=== PATIENT | female | born 1990 | race Caucasian/White ===

== ENCOUNTER 2022-02-16 07:10 | Day surgery (SDC) | payer BC, SELFPAY ==
[2022-02-16 07:42] VITALS: BMI 30.9
== END 2022-02-16 11:10 | disposition home or self-care (01) ==
LOC: CSHLD/OP 07:10
PROVIDERS: ATTEND Obstetrics & Gynecology
DX: O47.1 False labor at or after 37 completed weeks of gestation (principal); O48.0 Post-term pregnancy; O46.93 Antepartum hemorrhage, unspecified, third trimester; O99.891 Other specified diseases and conditions complicating pregnancy; M54.9 Dorsalgia, unspecified; Z3A.40 40 weeks gestation of pregnancy

== ENCOUNTER 2022-02-17 00:45 | Inpatient (IN) | payer BC ==
[2022-02-17 01:09] VITALS: BMI 31.1
[2022-02-17] MEDS ORDERED: Ondansetron PF 4 MG/2 ML Vial IVP PRN ×2 (01:16→09:23)
[2022-02-17] MEDS ORDERED: hydrALAZINE 20 MG/ML VIAL SLOW IVP PRN ×2 (01:16→09:23)
[2022-02-17] MEDS ORDERED: Ibuprofen 800 MG TAB PO PRN (01:16)
[2022-02-17] MEDS ORDERED: Acetaminophen 500 MG TAB PO PRN (01:16)
[2022-02-17] MEDS ORDERED: Butorphanol Tartrate 1 MG/ML VIAL SLOW IVP PRN (01:16)
[2022-02-17] MEDS ORDERED: Carboprost 250 MCG/ML AMP IM PRN (01:16)
[2022-02-17] MEDS ORDERED: Lidocaine 1% (PF) 30 ML VIAL SC PRN (01:16)
[2022-02-17] MEDS ORDERED: Misoprostol 200 MCG TAB PR PRN (01:16)
[2022-02-17] MEDS ORDERED: Diphenoxylate HCl/Atropine Tablet PO PRN (01:16)
[2022-02-17] MEDS ORDERED: Methylergonovine 0.2 MG/ML VIAL IM PRN ×2 (01:16→09:23)
[2022-02-17] MEDS ORDERED: Promethazine HCl 25 MG/ML VIAL IM PRN (01:16)
[2022-02-17] MEDS ORDERED: NS w/ Oxytocin 30 units 500 ML IV SCH ×2 (01:30→09:23)
[2022-02-17] MEDS ORDERED: Lactated Ringer's 1,000 ML IV SCH (01:30)
[2022-02-17 01:53] LABS: Hemoglobin 13.9 g/dL (12.0-15.5); Mean Corpuscular HGB CONC 34.9 g/dL (32.0-36.0); Mean Corpuscular Hemoglobin 30.9 pg (27.0-33.0); Mean Corpuscular Volume 88.4 fl (81.6-98.3); Mean Platelet Volume 9.5 fl (7.4-10.4); Platelet Count 178 10x3/uL (150-450); RBC Distribution Width 13.6 % (11.5-14.5); White Blood Cell (WBC) Count 16.7 10x3/uL (3.5-10.5)
[2022-02-17 02:27] LABS: SARS-CoV-2 NAA Rapid Test Not Detected (NotDetected)
[2022-02-17 02:41] LABS: Hep B Surf Ag Non-Reactive S/CO (NonReactive)
[2022-02-17 02:44] LABS: HBSAg Index 0.16 S/CO (0-0.99)
[2022-02-17 02:45] LABS: Syphilis Antibody Nonreactive (Nonreactive); Syphilis Antibody Index 0.13 S/CO (<1.00 Non-Reactive)
[2022-02-17 03:39] LABS: HIV (1/2) Antibody/Antigen Non-Reactive (NonReactive); HIV 1/2 INDEX 0.12 S/CO (<1.00)
[2022-02-17] MEDS ORDERED: Milk Of Magnesia 30 ML UDCUP PO PRN (09:23)
[2022-02-17] MEDS ORDERED: Lanolin Ointment 7 GM TUBE TOP PRN (09:23)
[2022-02-17] MEDS ORDERED: HYDROcodone/Acetaminophen 5/325 mg Tablet PO PRN ×2 (09:23)
[2022-02-17] MEDS ORDERED: Misoprostol 200 MCG TAB VAG PRN (09:23)
[2022-02-17] MEDS ORDERED: Benzocaine-Menthol 82.5 ML CAN TOP PRN (09:23)
[2022-02-17] MEDS ORDERED: Boostrix 0.5 ML (Tdap) VIAL IM ONE (09:23)
[2022-02-17] MEDS ORDERED: Bisacodyl 10 MG SUPP PR PRN (09:23)
[2022-02-17] MEDS ORDERED: Docusate 100 MG CAP PO SCH (10:00)
[2022-02-17] MEDS ORDERED: Ferrous Sulfate 325 MG TAB PO SCH (10:00)
[2022-02-17] MEDS ORDERED: Prenatal Vitamin 1 TAB PO SCH (10:00)
[2022-02-17] MEDS: Ibuprofen 800 MG TAB PO SCH ×2 (12:00→17:30)
[2022-02-17] MEDS: Ferrous Sulfate 325 MG TAB PO SCH (19:14)
[2022-02-17] MEDS: Docusate 100 MG CAP PO SCH (21:22)
[2022-02-18] MEDS: Ibuprofen 800 MG TAB PO SCH ×2 (01:54→10:49)
[2022-02-18] MEDS: Ferrous Sulfate 325 MG TAB PO SCH (10:12)
[2022-02-18] MEDS: Docusate 100 MG CAP PO SCH (10:48)
[2022-02-18] MEDS: Prenatal Vitamin 1 TAB PO SCH ×2 (10:48→10:50)
[2022-02-18 11:12] VITALS: BP 104/53; TEMP 98
== END 2022-02-18 11:50 | disposition home or self-care (01) | DRG 807 ==
LOC: CSHLD/OP 00:45 → CSHLD 01:19 → CSHPP 09:32
PROVIDERS: ADMIT Obstetrics & Gynecology; ATTEND Obstetrics & Gynecology
PROC: 10E0XZZ Delivery of Products of Conception, External Approach (ICD-10-PCS; principal; 2022-02-17)
DX: O80 Encounter for full-term uncomplicated delivery (principal); Z37.0 Single live birth; Z3A.40 40 weeks gestation of pregnancy; Z90.89 Acquired absence of other organs; Z20.822 Contact with and (suspected) exposure to COVID-19
CPT/HCPCS: 36415; 85027; 86780; 86850; 86900; 86901; 87340; 87389; U0002

== ENCOUNTER 2024-06-14 19:52 | Emergency (ER) | payer BC ==
[~2024-06-14 19:52] MED LIST: Iopamidol 370 76% 100 ML VIAL ONE
[2024-06-14 20:30] LABS: #Basophils 0.04 10x3/uL (0.0-0.2); #Eosinophils 0.05 10x3/uL (0.0-0.5); #Monocytes 0.97 10x3/uL (0.0-1.1); #Neutrophils 9.52 10x3/uL (1.5-8.4); %Basophils 0.3 % (0.0-2.0); %Eosinophils 0.4 % (0.0-6.0); %Lymphocytes 12.1 % (18.0-47.0); %Neutrophils 78.5 % (40.0-75.0); Hematocrit 32.3 % (34.9-44.5); Hemoglobin 10.8 g/dL (12.0-15.5); Mean Corpuscular HGB CONC 33.4 g/dL (32.0-36.0); Mean Corpuscular Volume 86.6 fL (81.6-98.3); Mean Platelet Volume 9.2 fL (7.4-10.4); Platelet Count 218 10x3/uL (150-450); RBC Distribution Width 13.6 % (11.5-14.5); Red Blood Cell (RBC) Count 3.73 10x6/uL (3.90-5.03); White Blood Cell (WBC) Count 12.1 10x3/uL (3.5-10.5)
[2024-06-14 20:42] LABS: ALT (SGPT) 36 U/L (8-55); AST (SGOT) 28 U/L (5-34); Albumin 2.8 g/dL (3.5-5.0); Alkaline Phosphatase 117 U/L (40-110); Anion Gap 13 mmol/L (10-20); BUN (Urea Nitrogen) 12 mg/dL (7.0-18.7); Bilirubin, Total 0.3 mg/dL (0.2-1.2); Calc. Creatinine Clearance 0 mL/min (70-130); Calcium 8.5 mg/dL (7.8-10.44); Carbon Dioxide 20 mmol/L (22-29); Chloride 106 mmol/L (98-107); Estimated GFR 118; Globulin 3.2 g/dL (2.4-3.5); Glucose 87 mg/dL (70-105); Potassium 3.9 mmol/L (3.5-5.1); Sodium 135 mmol/L (136-145)
[2024-06-14 20:48] LABS: Troponin I Less than 0.010 ng/mL (< 0.028)
[2024-06-14] MEDS ORDERED: Acetaminophen 500 MG TAB ONE (21:13)
== END 2024-06-14 22:48 | disposition home or self-care (01) ==
LOC: CSHERS 19:52
DX: O99.013 Anemia complicating pregnancy, third trimester (principal); O99.513 Diseases of the respiratory system complicating pregnancy, third trimester; J39.8 Other specified diseases of upper respiratory tract; B97.89 Other viral agents as the cause of diseases classified elsewhere; O26.93 Pregnancy related conditions, unspecified, third trimester; R07.9 Chest pain, unspecified; Z3A.36 36 weeks gestation of pregnancy; Z55.6 Problems related to health literacy
CPT/HCPCS: 71045; 71275; 80053; 84484; 85025; 85379; 93005; Q9967

== ENCOUNTER 2024-07-12 11:28 | Inpatient (IN) | payer BC ==
[2024-07-12] MEDS ORDERED: Lactated Ringer's 1,000 ML IV PRN (12:38)
[2024-07-12] MEDS ORDERED: Promethazine HCl 25 MG/ML VIAL IM PRN ×2 (12:38→20:41)
[2024-07-12] MEDS ORDERED: hydrALAZINE 20 MG/ML VIAL SLOW IVP PRN (12:38)
[2024-07-12] MEDS ORDERED: Misoprostol 200 MCG TAB PR PRN (12:38)
[2024-07-12] MEDS ORDERED: Lidocaine 1% (PF) 30 ML VIAL SC PRN (12:38)
[2024-07-12] MEDS ORDERED: Tranexamic Acid 1,000 MG/10 ML VIAL IVP PRN (12:38)
[2024-07-12] MEDS ORDERED: Ondansetron PF 4 MG/2 ML Vial IVP PRN ×2 (12:38→20:41)
[2024-07-12] MEDS ORDERED: fentaNYL 50 mcg/mL 1 mL Vial SLOW IVP PRN (12:38)
[2024-07-12] MEDS ORDERED: Methylergonovine 0.2 MG/ML VIAL IM PRN (12:38)
[2024-07-12] MEDS ORDERED: HYDROcodone/Acetaminophen 5/325 mg Tablet PO PRN ×2 (12:40)
[2024-07-12] MEDS ORDERED: Ibuprofen 800 MG TAB PO PRN (12:40)
[2024-07-12] MEDS ORDERED: Oxytocin 30 units/NS 500 ML 500 ML IV SCH ×2 (12:45)
[2024-07-12 13:29] VITALS: BMI 34.7
[2024-07-12] MEDS: Misoprostol 100 MCG TAB PO SCH (13:40)
[2024-07-12 13:50] LABS: Hematocrit 36.3 % (34.9-44.5); Hemoglobin 12.2 g/dL (12.0-15.5); Mean Corpuscular HGB CONC 33.6 g/dL (32.0-36.0); Mean Corpuscular Hemoglobin 29.1 pg (27.0-33.0); Mean Corpuscular Volume 86.6 fL (81.6-98.3); Mean Platelet Volume 9.9 fL (7.4-10.4); Platelet Count 209 10x3/uL (150-450); RBC Distribution Width 14.9 % (11.5-14.5); Red Blood Cell (RBC) Count 4.19 10x6/uL (3.90-5.03); White Blood Cell (WBC) Count 11.6 10x3/uL (3.5-10.5)
[2024-07-12 14:39] LABS: HBsAg Index 0.15 S/CO (0-0.99); Hep B Surf Ag - L&D Non-Reactive S/CO (NonReactive)
[2024-07-12 14:40] LABS: Syphilis Antibody Nonreactive (Nonreactive)
[2024-07-12] MEDS: fentaNYL/Ropivacaine Epidural 100 ML ONE (19:57)
[2024-07-12] MEDS ORDERED: diphenhydrAMINE 50 MG/ML VIAL IVP PRN (20:41)
[2024-07-12] MEDS ORDERED: Lactated Ringer's 500 ML IV PRN (20:41)
[2024-07-12] MEDS ORDERED: ePHEDrine Sulfate 50 MG/10 ML VIAL SLOW IVP PRN (20:41)
[2024-07-12] MEDS ORDERED: Naloxone HCl 0.4 mg/ml Vial IVP PRN ×2 (20:41)
[2024-07-12] MEDS ORDERED: Acetaminophen 325 MG TAB PO PRN (20:41)
[2024-07-12] MEDS ORDERED: Moisturizing Cream (Eucerin) 113 GM JAR TOP PRN (20:41)
[2024-07-12] MEDS ORDERED: fentaNYL 2 mcg/Ropivacaine 0.2% Epidural 100 ML CADD EPIDURAL SCH (20:45)
[2024-07-12] MEDS ORDERED: Communication Order-Pharmacy FS SCH (20:45)
[2024-07-13] MEDS ORDERED: Ibuprofen 800 MG TAB ONE ×3 (04:11→20:42)
[2024-07-13] MEDS ORDERED: Prenatal Vitamin 1 TAB ONE (08:11)
[2024-07-13] MEDS ORDERED: Docusate 100 MG CAP ONE ×2 (08:11→20:42)
[2024-07-13] MEDS ORDERED: Ferrous Sulfate 325 MG TAB ONE (08:11)
[2024-07-14] MEDS ORDERED: Ibuprofen 800 MG TAB ONE (05:40)
[2024-07-14] MEDS ORDERED: Prenatal Vitamin 1 TAB ONE (08:34)
[2024-07-14] MEDS ORDERED: Docusate 100 MG CAP ONE (08:34)
[2024-07-14] MEDS ORDERED: Bupivacaine 0.25% HCL 30 ML VIAL ONE (10:00)
[2024-07-14] MEDS ORDERED: Bupivacaine HCl 0.5%/Epinephrine 1:200,000/PF 30 ml Vial ONE (10:00)
[2024-07-14] MEDS ORDERED: Lidocaine 2% MPF 10 ML AMP (For Epidural Use) ONE (10:00)
== END 2024-07-14 11:55 | disposition home or self-care (01) | DRG 807 ==
LOC: CSHLD/OP 11:28 → CSHLD 15:56 → CSHPED 07-13 02:05
PROVIDERS: ADMIT Obstetrics & Gynecology; ATTEND Obstetrics & Gynecology
PROC: 10E0XZZ Delivery of Products of Conception, External Approach (ICD-10-PCS; principal; 2024-07-12)
PROC: 3E0S3BZ Introduction of Anesthetic Agent into Epidural Space, Percutaneous Approach (ICD-10-PCS; 2024-07-12)
DX: O80 Encounter for full-term uncomplicated delivery (principal); Z37.0 Single live birth; Z3A.40 40 weeks gestation of pregnancy
CPT/HCPCS: 51702; 85027; 86780; 86850; 86900; 86901; 87340; 99285; J0665